=== PATIENT | female | born 1980 | race Caucasian/White ===

== ENCOUNTER 2016-06-24 12:55 | Emergency (ER) | payer OTHER ==
[2016-06-24 15:58] LABS: HEMOGLOBIN 12.8 gm/dl (12.3-15.3); RED BLOOD COUNT 4.36 M/UL (4.00-5.10)
[2016-06-24 16:08] LABS: BUN/CREATININE RATIO 18 (0-10)
== END 2016-06-24 17:35 | disposition home or self-care (01) ==
LOC: ER1 12:55
PROVIDERS: Physician Assistant
DX: L03.211 Cellulitis of face (principal); F17.210 Nicotine dependence, cigarettes, uncomplicated
CPT/HCPCS: 36415; 70487; 80053; 85025; 96372; 99284; J7030; J7050; Q9962